=== PATIENT | female | born 1995 | race Caucasian/White ===

== ENCOUNTER 2017-08-05 12:45 | Emergency (ER) | payer SELFPAY ==
[~2017-08-05 12:45] MED LIST: PREN-502 PO
--- NOTE | 2017-08-05 13:50 | NUR ---
PATIENT LEFT WITHOUT BEING SEEN BY DR. ROBERTSON. NO FURTHER CARE PROVIDED FOR PATIENT.
== END 2017-08-05 13:50 | disposition left against medical advice (07) ==
LOC: MED 12:45
DX: Z53.21 Procedure and treatment not carried out due to patient leaving prior to being seen by health care provider (principal)

== ENCOUNTER 2020-08-01 18:02 | Emergency (ER) | payer OTHER ==
[~2020-08-01] VITALS: Ht 165.1 cm; Wt 64.0 kg
[2020-08-01 18:10] VITALS: BP 120/72
--- NOTE | 2020-08-01 18:36 | NUR ---
25 Y/O FEMALE C/O ERYTHEMATOUS AND WARM MASS ON RIGHT SUPRAPUBIC AREA FOR 2 DAYS S/P LIPOSUCTION PROCEDURE ON 06/30/2020. PT DENIES FEVER, CHILLS, NAUSEA, OR VOMITING. NO DRAINAGE BUT A SMALL SCAR NOTICED ON THE INCISION SITE. PATIENT DENIES ANY PAIN, CHILLS, NAUSEA OR VOMITING. PMH: DENIES MEDS: DENIES
[2020-08-01 18:37] VITALS: BP 120/72
--- NOTE | 2020-08-01 19:01 | NUR ---
PATIENT LEFT WITHOUT BEING SEEN BY DR. RODRÍGUEZ. NO FURTHER CARE PROVIDED FOR PATIENT.
== END 2020-08-01 19:01 | disposition left against medical advice (07) ==
LOC: MED 18:02
DX: R10.32 Left lower quadrant pain (principal); Z53.21 Procedure and treatment not carried out due to patient leaving prior to being seen by health care provider
CPT/HCPCS: 81002; 81025

== ENCOUNTER 2020-08-03 16:38 | Emergency (ER) | payer OTHER ==
[~2020-08-03] VITALS: Ht 165.1 cm; Wt 64.0 kg
[2020-08-03 16:40] VITALS: BP 117/69
--- NOTE | 2020-08-03 16:52 | NUR ---
25F, Came in with c/o r inguinal mass, denies pain at this moment. pt stated that it has been swelling with redness for 4 days. Pt had liposuction in [place] 1 month ago. Pt stated there is discomfort to the site described as burning sensation. Denies any History, NKA
--- NOTE | 2020-08-03 16:57 | NUR ---
Dr Turpin at bedside examining pt
[2020-08-03] MEDS ORDERED: NACL 0.9% 1,000 ML IV ONE (17:05)
--- NOTE | 2020-08-03 17:22 | NUR ---
IV inserted to L hand 22G pt tolerated well, blood drawn by Intake Counselor.
[2020-08-03 17:30] LABS: BASOPHILS % (AUTO) 0.3 % (0.0-2.0); EOSINOPHILS % (AUTO) 0.5 % (0.0-4.0); HEMATOCRIT 33.6 % (36-48); HEMOGLOBIN 10.9 g/dL (12.0-16.0); LYMPHOCYTES # (AUTO) 1.7 K/uL (2.5-16.5); LYMPHOCYTES % (AUTO) 35.5 % (20.5-51.1); MEAN CORPUSCULAR HEMOGLOBIN 26 pg (27-31); MEAN CORPUSCULAR HGB CONC 32 g/dL (33-37); MEAN CORPUSCULAR VOLUME 81.5 fL (80-94); MONOCYTES # (AUTO) 0.4 K/uL (0.8-1.0); MONOCYTES % (AUTO) 8.4 % (1.7-9.3); NEUTROPHILS # (AUTO) 2.7 K/uL (1.8-7.7); NEUTROPHILS % (AUTO) 55.3 % (42.2-75.2); PLATELET COUNT (AUTO) 238 K/uL (140-450); RED BLOOD CELL COUNT(AUTO) 4.12 MIL/uL (4.20-5.40); RED CELL DISTRIBUTION WIDTH 14.8 % (11.6-13.7); WHITE BLOOD COUNT (AUTO) 4.8 K/uL (4.8-10.8)
[2020-08-03 17:38] LABS: ANION GAP 16.1 (8-16); CARBON DIOXIDE 26.6 mmol/L (21-32); CREATININE 0.7 mg/dL (0.6-1.3); POTASSIUM 3.7 mmol/L (3.5-5.1)
[2020-08-03 17:44] LABS: ALBUMIN 3.5 g/dL (3.4-5.0); TOTAL BILIRUBIN 0.2 mg/dL (0.0-1.0)
--- NOTE | 2020-08-03 17:58 | NUR ---
consent signed for CT abd/pelvis, pt stated understanding, no questions at this moment
--- NOTE | 2020-08-03 18:50 | NUR ---
pt went to CT
--- NOTE | 2020-08-03 18:58 | NUR ---
PT came back from CT.
--- NOTE | 2020-08-03 19:13 | NUR ---
Report given to night court magistrate nurse Antonio MARIEE for transfer of care.
--- NOTE | 2020-08-03 19:13 | NUR ---
REPORT RECEIVED FROM WEN MARIEE FOR CONTINUITY OF CARE
--- NOTE | 2020-08-03 20:17 | NUR ---
COVID SWAB DONE AND SENT TO LAB
[2020-08-03 20:30] VITALS: BP 117/69
--- NOTE | 2020-08-03 20:30 | NUR ---
Patient discharged with v/s stable. Written and verbal after care instructions given and explained. Patient alert, oriented and verbalized understanding of instructions. Ambulatory with steady gait. All questions addressed prior to discharge. ID band removed. IV Discontinued. Patient advised to follow up with PMD. Rx of AUGMENTIN given. Patient educated on indication of medication including possible reaction and side effects. Opportunity to ask questions provided and answered.
== END 2020-08-03 20:30 | disposition home or self-care (01) ==
LOC: MED 16:38
DX: T14.8XXA Other injury of unspecified body region, initial encounter (principal); J18.9 Pneumonia, unspecified organism; X58.XXXA Exposure to other specified factors, initial encounter; Y93.89 Activity, other specified; Y92.89 Other specified places as the place of occurrence of the external cause; Y99.8 Other external cause status
CPT/HCPCS: 36415; 74177; 80053; 81025; 83605; 85025; 86140; 87040; 96360; 96361; 99285; J7030; Q9967; U0003